=== PATIENT | male | born 1965 | race Caucasian/White ===

== ENCOUNTER 2016-12-02 12:58 | Emergency (ER) | payer OTHER ==
[2016-12-02] MEDS ORDERED: ROCURONIUM BROMIDE 10 MG/ML SOL IV ONE ×5 (13:03→14:47)
[2016-12-02] MEDS ORDERED: MIDAZOLAM 2 MG/2 ML SOL ONE ×4 (13:03→13:57)
[2016-12-02] MEDS: SODIUM CHLORIDE 0.9% FLUSH 10 ML SOL IV PRN ×8 (13:06→15:49)
[2016-12-02] MEDS ORDERED: MIDAZOLAM 2 MG/2 ML SOL IV ONE ×2 (13:09→13:36)
[2016-12-02] MEDS ORDERED: SODIUM CHLORIDE 0.9% 1000ML 1,000 ML IV SCH (13:12)
[2016-12-02 13:13] LABS: ABG PH 7.38 (7.35-7.45)
[2016-12-02 13:14] LABS: BASOPHILS % (AUTO) 1 % (0-3); EOSINOPHILS % (AUTO) 2 % (0-9); HEMATOCRIT 47 % (39-53); MEAN CORPUSCULAR VOLUME 82 fL (80-100); MONOCYTES % (AUTO) 4.8 % (0-12); NEUTROPHILS % (AUTO) 65.4 % (37-80)
[2016-12-02] MEDS ORDERED: METOPROLOL TARTRATE 5 MG/5 ML SOL IV ONE ×2 (13:19→13:20)
[2016-12-02 13:20] VITALS: RESP 24
[2016-12-02 13:29] LABS: CALCIUM 9.5 mg/dl (8.5-10.1)
[2016-12-02] MEDS ORDERED: POTASSIUM CHLORIDE 2 MEQ/ML SOL IV ONE (13:29)
[2016-12-02 13:32] LABS: POTASSIUM 2.7 mMol/L (3.5-5.1)
[2016-12-02] MEDS ORDERED: NOREPINEPHRINE BITARTRATE 4 MG/4 ML SOL IV ONE (13:38)
[2016-12-02] MEDS ORDERED: POTASSIUM CHLORIDE 2 MEQ/ML SOL IV SCH (13:45)
[2016-12-02 13:59] VITALS: TEMP 96.4
[2016-12-02] MEDS ORDERED: EPINEPHRINE 1:1000 AMP 1 MG/ML SOL ONE (14:55)
[2016-12-02] MEDS ORDERED: EPINEPHRINE HCL 0.1 MG/ML SOL IV PRN ×5 (14:57→16:00)
[2016-12-02] MEDS ORDERED: SODIUM CHLORIDE 0.9% IV SCH (15:04)
[2016-12-02] MEDS ORDERED: [UNRECOGNIZED DRUG - OTHER] IV SCH (15:04)
[2016-12-02] MEDS ORDERED: EPINEPHRINE 1:10,000 PREFILL 0.1 MG/ML SOL ONE ×2 (16:17→16:36)
[2016-12-02] MEDS ORDERED: AMIODARONE 50 MG/ML SOL ONE (16:18)
[2016-12-02 16:34] VITALS: BP 109/76
[2016-12-02 16:40] VITALS: O2SAT 97
[2016-12-02] MEDS ORDERED: NOREPINEPHRINE 4 MG/4 ML 4 MG in DEXTROSE 500 ML 500 ML IV SCH (16:45)
[2016-12-02 17:11] VITALS: PULSE 88
== END 2016-12-02 16:04 | disposition short-term general hospital (02) ==
LOC: ED 12:58
DX: I46.9 Cardiac arrest, cause unspecified (principal)
CPT/HCPCS: 99291 ×3; 36600; 80053; 82550; 82803; 84484; 85025; 85610; 85730; 93005 ×2; J2250 ×2; J3480; 36415; 96365; 96366; 96374; 96375; 99292; J0282